=== PATIENT | male | born 1985 | race African-American/Black ===

== ENCOUNTER 2019-05-24 04:51 | Emergency (ER) | payer MEDICAID ==
[~2019-05-24] VITALS: Ht 190.5 cm; Wt 125.0 kg
[2019-05-24] MEDS ORDERED: HYDROCODONE/ACETAMINOPHEN 5/325MG TABLET PO ONE (06:30)
[2019-05-24 08:01] VITALS: BP 128/98
== END 2019-05-24 08:02 | disposition home or self-care (01) ==
LOC: ER 04:51
DX: S62.664A Nondisplaced fracture of distal phalanx of right ring finger, initial encounter for closed fracture (principal); Y04.0XXA Assault by unarmed brawl or fight, initial encounter; Y93.89 Activity, other specified; Y92.018 Other place in single-family (private) house as the place of occurrence of the external cause
CPT/HCPCS: 29130; 73130; 99283